=== PATIENT | male | born 1950 | race Caucasian/White ===

== ENCOUNTER → 2017-02-09 | Outpatient (CLI) | payer MEDICARE, OTHER ==
[2017-02-09 12:17] LABS: ESTIMATED GFR (MDRD EQUATION) > 60
== END | disposition disaster alternative care site (69) ==
LOC: GLAB 11:42
PROVIDERS: Urology
DX: R97.20 Elevated prostate specific antigen [PSA] (principal)
CPT/HCPCS: A9577